=== PATIENT | male | born 1970 | race Native Hawaiian/Other Pacific Islander ===

== ENCOUNTER 2022-10-12 00:35 | Emergency (ER) | payer OTHER ==
[~2022-10-12] VITALS: Ht 190.5 cm; Wt 112.5 kg
[2022-10-12 00:35] VITALS: BP 130/82; TEMP 98.7
[2022-10-12 01:18] LABS: PLATELET COUNT 213 K/uL (142-355)
[2022-10-12 01:25] LABS: POTASSIUM 3.8 mmol/L (3.6-5.2)
[2022-10-12] MEDS ORDERED: SERT50TA PO (09:05)
[2022-10-12] MEDS ORDERED: DIVALPROEX250 M1 PO (09:07)
[2022-10-12] MEDS ORDERED: QUETIAPINE50 MG PO (09:08)
[2022-10-12] MEDS ORDERED: LORA1TAB17 PO (09:10)
== END 2022-10-12 02:10 | disposition still patient (30) ==
LOC: ED 00:35
PROVIDERS: Emergency Medicine Emergency Medical Services
DX: R46.89 Other symptoms and signs involving appearance and behavior (principal); R45.1 Restlessness and agitation; Z11.52 Encounter for screening for COVID-19; Z04.6 Encounter for general psychiatric examination, requested by authority
CPT/HCPCS: 36415; 80053; 81002; 85027; 87635; 93005; 99283; U0003